=== PATIENT | female | born 1970 | race African-American/Black ===

== ENCOUNTER 2022-06-07 18:36 | Inpatient (IN) | payer OTHER, MEDICAID ==
[~2022-06-07] VITALS: Ht 170.2 cm; Wt 108.1 kg
[2022-06-07] MEDS ORDERED: VISCOUS LIDOCAINE 2% 15 ML UDC PO STA (18:55)
[2022-06-07] MEDS ORDERED: MAGNESIUM/ALUMINUM HYDROXIDE/SIMETHICONE 30ML UDC PO STA (18:55)
[2022-06-07] MEDS ORDERED: FAMOTIDINE 20MG TABLET PO ONE (19:00)
[2022-06-07 21:23] LABS: BASOPHILS % 0.6 % (0.0-2.0); EOSINOPHILS % 1.7 % (0.0-5.0); HEMATOCRIT. 41.4 % (36.0-48.0); HEMOGLOBIN. 14.3 g/dL (12.0-16.0); LYMPHOCYTES % 26.2 % (20.0-50.0); MEAN CORPUSCULAR HEMOGLOBIN 28.4 pg (28.0-32.0); MEAN CORPUSCULAR VOLUME 82.2 fL (81.0-99.0); MEAN PLATELET VOLUME 7.7 fl (7.4-10.4); NEUTROPHILS % 63.5 % (40.0-76.0); PLATELET 228 x1000/uL (130-400); RED BLOOD CELL COUNT 5.04 mill/uL (4.2-5.4); RED CELL DISTRIBUTION WIDTH 17.2 % (11.6-14.6)
[2022-06-07 21:30] LABS: CHLORIDE 99 mEq/L (98-107)
[2022-06-07 21:31] LABS: HCG SCREEN NEGATIVE
[2022-06-07] MEDS ORDERED: MORPHINE SULFATE 4 MG/ML CPJ (NOT FOR IM USE) IV ONE (22:15)
[2022-06-07] MEDS ORDERED: SODIUM CHLORIDE 0.9% 1,000 ML IV ONE (22:15)
[2022-06-07] MEDS ORDERED: POTASSIUM CHLORIDE 20MEQ/PACKET PO ONE ×2 (22:15)
[2022-06-08] MEDS ORDERED: GUAIFENESIN 200MG/10ML SUGAR FREE UDC PO PRN (06:15)
[2022-06-08] MEDS ORDERED: TRAMADOL 50MG TABLET PO PRN (06:15)
[2022-06-08] MEDS ORDERED: ACETAMINOPHEN 325MG TABLET PO PRN (06:15)
[2022-06-08] MEDS ORDERED: DOCUSATE SODIUM 100MG CAPSULE PO PRN (06:15)
[2022-06-08] MEDS ORDERED: MAGNESIUM/ALUMINUM HYDROXIDE/SIMETHICONE 30ML UDC PO PRN (06:15)
[2022-06-08] MEDS: PANTOPRAZOLE SODIUM 40 MG/VIAL IV SCH ×2 (09:00→10:55)
[2022-06-08 10:27] LABS: CHLORIDE 98 mEq/L (98-107)
[2022-06-08] MEDS ORDERED: NALOXONE HCL 0.4MG/ML VIAL IV PRN (10:30)
[2022-06-08 10:50] VITALS: BP 116/89
[2022-06-08] MEDS: ONDANSETRON HCL 4MG/2ML INJ IV PRN (10:52)
[2022-06-08 11:00] VITALS: BP 143/98
[2022-06-08] MEDS ORDERED: POTASSIUM CHLORIDE 20MEQ TABLET SR PO NR (11:00)
[2022-06-08] MEDS ORDERED: KETOROLAC 15MG/ML VIAL IV PRN (11:00)
[2022-06-08] MEDS ORDERED: NITROGLYCERIN 0.4MG TABLET SL SL PRN (11:15)
[2022-06-08 12:00] VITALS: BP 153/61
[2022-06-08] MEDS: HYDROMORPHONE HCL/PF 2MG/ML CPJ IV PRN ×2 (12:10→22:39)
[2022-06-08] MEDS: ENOXAPARIN 40MG/0.4ML SYR SUBCUT SCH (14:37)
[2022-06-08] MEDS: AMLODIPINE 10MG TABLET PO SCH (14:38)
[2022-06-08] MEDS: DEXT 5%/0.45% NACL KCL 10MEQ/L 1,000 ML IV SCH ×2 (15:28→22:38)
[2022-06-08 16:00] VITALS: BP 147/88
[2022-06-08 21:00] VITALS: BP 136/88
[2022-06-09] VITALS: BP 169/89
[2022-06-09] MEDS ORDERED: DEXTROSE 50% WATER 50ML SYRINGE IV PRN
[2022-06-09] MEDS ORDERED: AMLODIPINE 5MG TABLET PO NR (00:45)
[2022-06-09 03:59] VITALS: BP 112/72
[2022-06-09] MEDS: HYDROMORPHONE HCL/PF 2MG/ML CPJ IV PRN ×3 (05:15→15:54)
[2022-06-09] MEDS: BLOOD SUGAR DIAGNOSTIC STRIP TEST SCH ×4 (05:59→22:30)
[2022-06-09] MEDS: INSULIN LISPRO 100 UNITS/ML SUBCUT SCH ×4 (07:20→22:30)
[2022-06-09 07:46] LABS: BASOPHILS % 0.6 % (0.0-2.0); HEMATOCRIT. 39.3 % (36.0-48.0); HEMOGLOBIN. 13.7 g/dL (12.0-16.0); LYMPHOCYTES % 14.4 % (20.0-50.0); MEAN CORPUSCULAR HEMOGLOBIN 28.9 pg (28.0-32.0); MEAN CORPUSCULAR VOLUME 83.1 fL (81.0-99.0); MEAN PLATELET VOLUME 8.1 fl (7.4-10.4); MONOCYTES % 11.8 % (2.0-8.0); NEUTROPHILS % 71.2 % (40.0-76.0); PLATELET 208 x1000/uL (130-400); RED BLOOD CELL COUNT 4.73 mill/uL (4.2-5.4); RED CELL DISTRIBUTION WIDTH 17.4 % (11.6-14.6)
[2022-06-09 07:49] LABS: CHLORIDE 100 mEq/L (98-107)
[2022-06-09 07:59] LABS: HDL CHOLESTEROL 84 mg/dL (40-59); LDL CHOLESTEROL 53 mg/dL (5-100)
[2022-06-09 08:00] VITALS: BP 128/93
[2022-06-09] MEDS ORDERED: POTASSIUM CHLORIDE INJ 40 MEQ in DEXT 5% WATER 250 ML IV ONE (09:15)
[2022-06-09] MEDS: ONDANSETRON HCL 4MG/2ML INJ IV PRN ×2 (09:55→15:54)
[2022-06-09] MEDS: PANTOPRAZOLE SODIUM 40 MG/VIAL IV SCH (09:57)
[2022-06-09] MEDS ORDERED: POTASSIUM CHLORIDE 20MEQ TABLET SR PO SCH (10:00)
[2022-06-09] MEDS: AMLODIPINE 10MG TABLET PO SCH (10:03)
[2022-06-09] MEDS: KCL 20MEQ/100ML X 2 FOR TOTAL KCL 40MEQ/200ML IV SCH ×2 (10:04→13:17)
[2022-06-09] MEDS: DEXT 5%/0.45% NACL KCL 10MEQ/L 1,000 ML IV SCH ×2 (10:04→18:48)
[2022-06-09] MEDS: ENOXAPARIN 40MG/0.4ML SYR SUBCUT SCH (10:32)
[2022-06-09] MEDS ORDERED: MAGNESIUM 1 G PREMIX 100 ML IV ONE (11:00)
[2022-06-09 12:00] VITALS: BP 109/77
[2022-06-09] MEDS ORDERED: MAGNESIUM 1 G PREMIX 100 ML IV SCH (13:00)
[2022-06-09] MEDS: METOCLOPRAMIDE HCL 10MG/2ML VIAL IV SCH ×2 (13:17→18:48)
[2022-06-09 16:00] VITALS: BP 131/86
[2022-06-09 20:00] VITALS: BP 114/71
[2022-06-09] MEDS: HYDROMORPHONE HCL 2MG TABLET PO PRN (22:31)
[2022-06-09] MEDS: ENOXAPARIN 30MG/0.3ML SYR SUBCUT SCH (22:31)
[2022-06-10] VITALS: BP 123/91
[2022-06-10 04:00] VITALS: BP 130/76
[2022-06-10] MEDS: DEXT 5%/0.45% NACL KCL 10MEQ/L 1,000 ML IV SCH ×2 (05:35→20:15)
[2022-06-10] MEDS: METOCLOPRAMIDE HCL 10MG/2ML VIAL IV SCH ×4 (05:44→18:13)
[2022-06-10 07:05] LABS: BASOPHILS % 0.5 % (0.0-2.0); EOSINOPHILS % 1.3 % (0.0-5.0); HEMATOCRIT. 37.9 % (36.0-48.0); HEMOGLOBIN. 13.3 g/dL (12.0-16.0); LYMPHOCYTES % 16.3 % (20.0-50.0); MEAN CORPUSCULAR HEMOGLOBIN 28.8 pg (28.0-32.0); MEAN CORPUSCULAR VOLUME 82.5 fL (81.0-99.0); MEAN PLATELET VOLUME 8.7 fl (7.4-10.4); MONOCYTES % 12.3 % (2.0-8.0); NEUTROPHILS % 69.6 % (40.0-76.0); PLATELET 185 x1000/uL (130-400); RED CELL DISTRIBUTION WIDTH 16.9 % (11.6-14.6)
[2022-06-10] MEDS: INSULIN LISPRO 100 UNITS/ML SUBCUT SCH ×4 (07:20→20:15)
[2022-06-10] MEDS: BLOOD SUGAR DIAGNOSTIC STRIP TEST SCH ×4 (07:31→20:15)
[2022-06-10] MEDS: HYDROMORPHONE HCL 2MG TABLET PO PRN (07:34)
[2022-06-10 07:35] LABS: CHLORIDE 101 mEq/L (98-107)
[2022-06-10 08:00] VITALS: BP 128/68
[2022-06-10] MEDS: ONDANSETRON HCL 4MG/2ML INJ IV PRN (09:58)
[2022-06-10] MEDS: PANTOPRAZOLE SODIUM 40 MG/VIAL IV SCH (09:58)
[2022-06-10] MEDS: HYDROMORPHONE HCL/PF 2MG/ML CPJ IV PRN ×4 (09:59→22:28)
[2022-06-10] MEDS: AMLODIPINE 10MG TABLET PO SCH (09:59)
[2022-06-10] MEDS: ENOXAPARIN 30MG/0.3ML SYR SUBCUT SCH ×2 (09:59→20:14)
[2022-06-10 12:00] VITALS: BP 122/69
[2022-06-10 13:00] LABS: TOTAL IRON BINDING CAPACITY 234 ug/dL (250-450)
[2022-06-10] MEDS: POTASSIUM CHLORIDE 20MEQ TABLET SR PO SCH (13:15)
[2022-06-10 14:43] LABS: VITAMIN B12 SERUM 881 pg/mL (211-911)
[2022-06-10 15:05] LABS: FERRITIN 265 ng/mL (10-291)
[2022-06-10 16:00] VITALS: BP 117/60
[2022-06-10 20:11] VITALS: BP 110/65
[2022-06-10] MEDS: ZOLPIDEM TARTRATE 5MG TABLET PO PRN (20:14)
[2022-06-11 00:03] VITALS: BP 102/42
[2022-06-11] MEDS: METOCLOPRAMIDE HCL 10MG/2ML VIAL IV SCH ×5 (00:03→23:26)
[2022-06-11] MEDS: HYDROMORPHONE HCL/PF 2MG/ML CPJ IV PRN ×3 (03:01→21:25)
[2022-06-11 04:09] VITALS: BP 95/53
[2022-06-11] MEDS: BLOOD SUGAR DIAGNOSTIC STRIP TEST SCH ×4 (06:23→21:33)
[2022-06-11] MEDS: INSULIN LISPRO 100 UNITS/ML SUBCUT SCH ×4 (06:23→21:00)
[2022-06-11 06:39] LABS: BASOPHILS % 0.8 % (0.0-2.0); EOSINOPHILS % 2.7 % (0.0-5.0); HEMATOCRIT. 34.4 % (36.0-48.0); HEMOGLOBIN. 12.1 g/dL (12.0-16.0); LYMPHOCYTES % 24.2 % (20.0-50.0); MEAN CORPUSCULAR HEMOGLOBIN 28.9 pg (28.0-32.0); MEAN CORPUSCULAR VOLUME 82.3 fL (81.0-99.0); MEAN PLATELET VOLUME 8.7 fl (7.4-10.4); MONOCYTES % 14.8 % (2.0-8.0); NEUTROPHILS % 57.5 % (40.0-76.0); PLATELET 178 x1000/uL (130-400); RED BLOOD CELL COUNT 4.18 mill/uL (4.2-5.4); RED CELL DISTRIBUTION WIDTH 17.4 % (11.6-14.6)
[2022-06-11 07:44] LABS: CHLORIDE 104 mEq/L (98-107)
[2022-06-11 08:00] VITALS: BP 122/64
[2022-06-11] MEDS: ENOXAPARIN 30MG/0.3ML SYR SUBCUT SCH ×2 (08:30→21:23)
[2022-06-11] MEDS: BISACODYL 5MG TABLET PO SCH (08:31)
[2022-06-11] MEDS: PANTOPRAZOLE SODIUM 40 MG/VIAL IV SCH (08:31)
[2022-06-11] MEDS: POTASSIUM CHLORIDE 20MEQ TABLET SR PO SCH (08:31)
[2022-06-11] MEDS: AMLODIPINE 10MG TABLET PO SCH (08:31)
[2022-06-11] MEDS: HYDROMORPHONE HCL 2MG TABLET PO PRN (08:41)
[2022-06-11] MEDS: DEXT 5%/0.45% NACL KCL 10MEQ/L 1,000 ML IV SCH ×2 (08:41→21:34)
[2022-06-11 12:00] VITALS: BP 130/60
[2022-06-11] MEDS: FOLIC ACID 1MG TABLET PO SCH (13:11)
[2022-06-11] MEDS: SORBITOL 70% SOLN 30ML PO SCH (13:12)
[2022-06-11] MEDS: POTASSIUM CHLORIDE 20MEQ/PACKET PO SCH ×2 (13:12→14:00)
[2022-06-11 16:00] VITALS: BP 111/69
[2022-06-11 20:00] VITALS: BP 117/63
[2022-06-11] MEDS: ZOLPIDEM TARTRATE 5MG TABLET PO PRN (21:34)
[2022-06-12] VITALS: BP 142/95
[2022-06-12] MEDS: HYDROMORPHONE HCL/PF 2MG/ML CPJ IV PRN ×3 (01:33→09:57)
[2022-06-12 04:00] VITALS: BP 112/68
[2022-06-12] MEDS: METOCLOPRAMIDE HCL 10MG/2ML VIAL IV SCH (05:40)
[2022-06-12] MEDS: BLOOD SUGAR DIAGNOSTIC STRIP TEST SCH (06:59)
[2022-06-12] MEDS: INSULIN LISPRO 100 UNITS/ML SUBCUT SCH (07:20)
[2022-06-12] MEDS: PANTOPRAZOLE SODIUM 40 MG/VIAL IV SCH (07:53)
[2022-06-12] MEDS: BISACODYL 5MG TABLET PO SCH (07:54)
[2022-06-12] MEDS: AMLODIPINE 10MG TABLET PO SCH (07:54)
[2022-06-12] MEDS: FOLIC ACID 1MG TABLET PO SCH (07:54)
[2022-06-12 07:55] LABS: BASOPHILS % 0.6 % (0.0-2.0); EOSINOPHILS % 1.8 % (0.0-5.0); HEMATOCRIT. 37.9 % (36.0-48.0); HEMOGLOBIN. 13.2 g/dL (12.0-16.0); LYMPHOCYTES % 21.2 % (20.0-50.0); MEAN CORPUSCULAR HEMOGLOBIN 29.1 pg (28.0-32.0); MEAN CORPUSCULAR VOLUME 83.3 fL (81.0-99.0); MEAN PLATELET VOLUME 8.7 fl (7.4-10.4); MONOCYTES % 13.3 % (2.0-8.0); NEUTROPHILS % 63.1 % (40.0-76.0); PLATELET 186 x1000/uL (130-400); RED BLOOD CELL COUNT 4.56 mill/uL (4.2-5.4); RED CELL DISTRIBUTION WIDTH 17.7 % (11.6-14.6)
[2022-06-12] MEDS: SORBITOL 70% SOLN 30ML PO SCH (07:55)
[2022-06-12] MEDS: ENOXAPARIN 30MG/0.3ML SYR SUBCUT SCH (07:55)
[2022-06-12 08:00] VITALS: BP 119/79
[2022-06-12 09:55] LABS: CHLORIDE 106 mEq/L (98-107)
[2022-06-12] MEDS ORDERED: KETOROLAC 15MG/ML VIAL IV PRN (10:15)
[2022-06-12 10:59] VITALS: BP 114/56
[2022-06-13] MEDS ORDERED: FAMOTIDINE 20MG/2ML VIAL IV SCH (09:00)
== END 2022-06-12 15:42 | disposition home or self-care (01) | DRG 438 ==
LOC: ER 18:36 → MICUSO 23:04 → EDBEDREQTM 23:50 → EDBEDREQ 23:50 → 3WST 06-08 10:08
PROVIDERS: ADMIT Hospitalist; ATTEND Hospitalist
PROC: 02HV33Z Insertion of Infusion Device into Superior Vena Cava, Percutaneous Approach (ICD-10-PCS; principal; 2022-06-10)
PROC: B548ZZA Ultrasonography of Superior Vena Cava, Guidance (ICD-10-PCS; 2022-06-10)
DX: K85.90 Acute pancreatitis without necrosis or infection, unspecified (principal); E43 Unspecified severe protein-calorie malnutrition; E87.6 Hypokalemia; G56.00 Carpal tunnel syndrome, unspecified upper limb; E11.41 Type 2 diabetes mellitus with diabetic mononeuropathy; D50.9 Iron deficiency anemia, unspecified; E53.8 Deficiency of other specified B group vitamins; E66.9 Obesity, unspecified; E87.5 Hyperkalemia; K59.00 Constipation, unspecified; K86.1 Other chronic pancreatitis; N83.209 Unspecified ovarian cyst, unspecified side; R16.0 Hepatomegaly, not elsewhere classified; R74.01 Elevation of levels of liver transaminase levels; M19.90 Unspecified osteoarthritis, unspecified site; F10.10 Alcohol abuse, uncomplicated; F41.9 Anxiety disorder, unspecified; Z68.37 Body mass index [BMI] 37.0-37.9, adult
CPT/HCPCS: 36415; 36573; 71045; 74176; 76700; 80048; 80053; 80061; 80076; 82607; 82728; 82746; 82962; 83036; 83540; 83550; 83735; 83880; 84132; 84484; 84703; 85025; 93005; 93306; 93970; 99285; C1725; C1769; C1893; C9113; J1170; J1650; J1815; J2405; J2765; J3475; J3480; J7030